=== PATIENT | female | born 1965 | race African-American/Black ===

== ENCOUNTER 2018-11-28 11:41 | Emergency (ER) | payer BC ==
[~2018-11-28] VITALS: Ht 170.2 cm; Wt 90.7 kg
== END 2018-11-28 12:58 | disposition home or self-care (01) ==
LOC: FSED 11:41
DX: R05 Cough (principal); J11.1 Influenza due to unidentified influenza virus with other respiratory manifestations; I10 Essential (primary) hypertension
CPT/HCPCS: 87400; 99282

== ENCOUNTER 2020-01-17 13:47 | Emergency (ER) | payer BC ==
[2020-01-17] MEDS ORDERED: ALLEGRA-D 12 H1 EACH PO (14:00)
[2020-01-17] MEDS ORDERED: HYDROCHLOROTHIA25 MG PO (14:00)
[2020-01-17] MEDS ORDERED: CLONIDINE HCL 0.2 MG TAB PO ONE (14:15)
== END 2020-01-17 14:30 | disposition home or self-care (01) ==
LOC: FSED 13:47
DX: R05 Cough (principal); J30.1 Allergic rhinitis due to pollen; I10 Essential (primary) hypertension
CPT/HCPCS: 99282

== ENCOUNTER → 2020-05-05 | Outpatient (CLI) | payer BC ==
[~2020-05-05] MED LIST: ALLEGRA-D 12 H1 EACH PO; HYDROCHLOROTHIA25 MG PO
== END ==
LOC: MAMMO 09:08
PROVIDERS: ATTEND Family Medicine
DX: Z12.31 Encounter for screening mammogram for malignant neoplasm of breast (principal)
CPT/HCPCS: 77067

== ENCOUNTER → 2021-03-22 | Outpatient (CLI) | payer OTHER | LOC: RAD 13:44 | PROVIDERS: ATTEND Family Medicine | DX: I10 Essential (primary) hypertension (principal) | CPT/HCPCS: 93306 ==

== ENCOUNTER → 2021-04-19 | Outpatient (CLI) | payer OTHER | LOC: MAMMO 10:39 | PROVIDERS: ATTEND Family Medicine | DX: Z12.31 Encounter for screening mammogram for malignant neoplasm of breast (principal) | CPT/HCPCS: 77067 ==

== ENCOUNTER → 2021-08-28 | Outpatient (CLI) | payer OTHER ==
[~2021-08-28] MED LIST changes: +COVID-19 VACC, MRNA(MODERNA)/PF 100 MCG/0.5 ML VIAL IM ONE
== END ==
LOC: VACCPMC 10:30
DX: Z23 Encounter for immunization (principal); Z20.822 Contact with and (suspected) exposure to COVID-19

== ENCOUNTER → 2022-04-24 | Outpatient (CLI) | payer BC ==
[~2022-04-24] MED LIST changes: -COVID-19 VACC, MRNA(MODERNA)/PF 100 MCG/0.5 ML VIAL IM ONE
== END ==
LOC: MAMMO 08:03
PROVIDERS: ATTEND Family Medicine
DX: Z12.31 Encounter for screening mammogram for malignant neoplasm of breast (principal)
CPT/HCPCS: 77067

== ENCOUNTER 2022-05-10 10:37 | Inpatient (IN) | payer BC ==
[~2022-05-10] VITALS: Ht 170.2 cm; Wt 100.2 kg
[2022-05-10] MEDS ORDERED: SODIUM CHLORIDE 0.9% 1000ML 1,000 ML IV STA ×2 (11:34→12:39)
[2022-05-10 12:10] LABS: BASOPHILS # (AUTO) 0.1 (0.0-0.1); BASOPHILS % 0.3 % (0.0-1.0); HEMATOCRIT 35.5 % (34.2-44.1); HEMOGLOBIN 12.4 g/dL (12.0-16.0); LYMPHOCYTES # (AUTO) 2.2 (1.0-3.2); LYMPHOCYTES % 11.2 % (18.0-39.1); MEAN CORPUSCULAR HEMOGLOBIN 30.1 pg (28-32); MEAN CORPUSCULAR HGB CONC 34.9 g/dL (31-35); MEAN CORPUSCULAR VOLUME 86.2 fL (81-99); MONOCYTES # (AUTO) 0.6 (0.2-0.8); MONOCYTES % 2.8 % (4.4-11.3); NEUTROPHILS # (AUTO) 16.6 (2.1-6.9); PLATELET COUNT 529 x10e3/uL (140-360); RED BLOOD COUNT 4.12 x10e6/uL (3.6-5.1); RED CELL DISTRIBUTION WIDTH 13.5 % (11.7-14.4)
[2022-05-10 12:43] LABS: ALANINE AMINOTRANSFERASE 114 IU/L (0-55); ALBUMIN 2.9 g/dL (3.5-5.0); ALBUMIN/GLOBULIN RATIO 0.5 (0.8-2.0); ALKALINE PHOSPHATASE 124 IU/L (40-150); ANION GAP 19.4 mmol/L (8-16); BLOOD UREA NITROGEN 26 mg/dL (7-26); BUN/CREATININE RATIO 19 (6-25); CALCIUM 8.9 mg/dL (8.4-10.2); CARBON DIOXIDE 24 mmol/L (22-29); CHLORIDE 89 mmol/L (98-107); CREATINE KINASE 1039 IU/L (29-168); CREATININE, SERUM 1.37 mg/dL (0.57-1.11); GLUCOSE 136 mg/dL (74-118); MAGNESIUM 2.6 MG/DL (1.3-2.1); POTASSIUM 3.4 mmol/L (3.5-5.1); SODIUM 129 mmol/L (136-145)
[2022-05-10 13:56] LABS: CLARITY,URINE SL CLOUDY (CLEAR); COLOR,URINE BROWN (YELLOW); KETONES,URINE NEGATIVE (NEGATIVE); LEUKOCYTE ESTERASE ,URINE NEGATIVE (NEGATIVE); NITRITE,URINE NEGATIVE (NEGATIVE); PROTEIN,URINE DIPSTICK >=300 (NEGATIVE); URINE UROBILINOGEN 0.2 mg/dL (0.2 - 1)
[2022-05-10 14:07] LABS: WBC,URINE (MAN) 0-5 /HPF (0-5)
[2022-05-10 14:08] LABS: BACTERIA,URINE MANY /HPF; EPITHELIAL CELLS,URINE MODERATE /LPF
[2022-05-10 14:45] LABS: FREE THYROXINE INDEX 1.9057 (1.4-3.8); THYROID STIMULATING HORMONE 1.187 uIU/mL (0.350-4.940)
[2022-05-10] MEDS: SODIUM CHLORIDE 0.9% 1000ML 1,000 ML IV SCH ×3 (15:27→23:00)
[2022-05-10] MEDS ORDERED: IOPAMIDOL 370 MG/ML 100 ML INFUS..BTL INJ ONE (15:44)
[2022-05-10] MEDS ORDERED: ONDANSETRON HCL INJ 2MG/ML 2ML 2 MG/ML VIAL IV PRN (16:00)
[2022-05-10] MEDS: FAMOTIDINE 20 MG/2 ML VIAL IV SCH (16:17)
[2022-05-10 17:49] VITALS: BP 109/81
[2022-05-10 18:09] VITALS: BP 109/81
[2022-05-10 18:17] LABS: CREATININE,URINE RANDOM 554.12 mg/dL (47-110)
[2022-05-10 18:57] LABS: INR 0.95; PARTIAL THROMBOPLASTIN TIME 18.7 seconds (23.8-35.5); PROTHROMBIN TIME 13.6 seconds (11.9-14.5)
[2022-05-10 19:02] LABS: CREATINE KINASE 830 IU/L (29-168)
[2022-05-10 20:00] VITALS: BP 124/85
[2022-05-10 20:36] VITALS: BP 124/85
[2022-05-10 21:11] LABS: AMPHETAMINES SCREEN,URINE NEGATIVE (NEGATIVE); BENZODIAZEPINES SCREEN,URINE NEGATIVE (NEGATIVE); PHENCYCLIDINE SCREEN,URINE NEGATIVE (NEGATIVE)
[2022-05-11] VITALS (7 sets, daily range): BP systolic 110–126; BP diastolic 70–86
[2022-05-11] MEDS: FAMOTIDINE 20 MG/2 ML VIAL IV SCH ×2 (04:40→15:21)
[2022-05-11 06:16] LABS: BASOPHILS % 0.3 % (0.0-1.0); EOSINOPHILS % 0.3 % (0.0-6.0); HEMATOCRIT 29.6 % (34.2-44.1); HEMOGLOBIN 10.2 g/dL (12.0-16.0); LYMPHOCYTES # (AUTO) 1.9 (1.0-3.2); LYMPHOCYTES % 14.5 % (18.0-39.1); MEAN CORPUSCULAR HEMOGLOBIN 29.8 pg (28-32); MEAN CORPUSCULAR HGB CONC 34.5 g/dL (31-35); MEAN CORPUSCULAR VOLUME 86.5 fL (81-99); MONOCYTES # (AUTO) 0.5 (0.2-0.8); MONOCYTES % 3.8 % (4.4-11.3); NEUTROPHILS # (AUTO) 10.2 (2.1-6.9); NEUTROPHILS % 79.6 % (38.7-80.0); PLATELET COUNT 551 x10e3/uL (140-360); RED BLOOD COUNT 3.42 x10e6/uL (3.6-5.1); RED CELL DISTRIBUTION WIDTH 13.8 % (11.7-14.4)
[2022-05-11 06:43] LABS: ALBUMIN 2.5 g/dL (3.5-5.0); ALBUMIN/GLOBULIN RATIO 0.5 (0.8-2.0); ANION GAP 15.9 mmol/L (8-16); CALCIUM 8.6 mg/dL (8.4-10.2); CREATININE, SERUM 0.82 mg/dL (0.57-1.11)
[2022-05-11 06:45] LABS: POTASSIUM 2.9 mmol/L (3.5-5.1)
[2022-05-11 06:56] LABS: CREATINE KINASE 616 IU/L (29-168)
[2022-05-11] MEDS ORDERED: POTASSIUM CHLORIDE 20MEQ/100ML 100 ML IV ONE (07:30)
[2022-05-11] MEDS ORDERED: POTASSIUM CHLORIDE 20 MEQ TAB CR PO STA (07:30)
[2022-05-11] MEDS: SODIUM CHLORIDE 0.9% 1000ML 1,000 ML IV SCH ×3 (07:57→20:35)
[2022-05-11] MEDS ORDERED: LEVOTHYROXINE50 MCG PO (11:27)
[2022-05-11] MEDS ORDERED: AMLODIPINE BESYL5 MG PO (11:27)
[2022-05-12] VITALS: BP 130/70
[2022-05-12 04:00] VITALS: BP 99/61
[2022-05-12] MEDS: FAMOTIDINE 20 MG/2 ML VIAL IV SCH (04:44)
[2022-05-12 07:27] VITALS: BP 124/82
[2022-05-12 07:40] LABS: CALCIUM 7.8 mg/dL (8.4-10.2); CREATININE, SERUM 0.64 mg/dL (0.57-1.11)
[2022-05-12 08:00] VITALS: BP 124/82
[2022-05-12] MEDS ORDERED: POTASSIUM CHLORIDE 20 MEQ TAB CR PO STA (08:21)
[2022-05-12] MEDS ORDERED: POTASSIUM CHLORIDE 20MEQ/100ML 100 ML IV ONE (08:30)
[2022-05-12] MEDS: SODIUM CHLORIDE 0.9% 1000ML 1,000 ML IV SCH (08:37)
[2022-05-12] MEDS ORDERED: POTASSIUM CHLO20 ME1 PO (11:19)
[2022-05-12 11:31] VITALS: BP 118/75
== END 2022-05-12 12:20 | disposition home or self-care (01) | DRG 683 ==
LOC: ER 11:13 → ERHOLD 15:46 → MED/SURG2 17:42
PROVIDERS: ADMIT Family Medicine; ATTEND Family Medicine
DX: N17.9 Acute kidney failure, unspecified (principal); E87.1 Hypo-osmolality and hyponatremia; M62.82 Rhabdomyolysis; N39.0 Urinary tract infection, site not specified; B34.9 Viral infection, unspecified; I10 Essential (primary) hypertension; E66.9 Obesity, unspecified; R79.89 Other specified abnormal findings of blood chemistry; E11.65 Type 2 diabetes mellitus with hyperglycemia; T50.2X5A Adverse effect of carbonic-anhydrase inhibitors, benzothiadiazides and other diuretics, initial encounter; E86.0 Dehydration; E87.6 Hypokalemia; R59.1 Generalized enlarged lymph nodes; E78.5 Hyperlipidemia, unspecified; Z82.49 Family history of ischemic heart disease and other diseases of the circulatory system; Z83.3 Family history of diabetes mellitus; Z88.1 Allergy status to other antibiotic agents; Z88.8 Allergy status to other drugs, medicaments and biological substances; Z68.34 Body mass index [BMI] 34.0-34.9, adult; Z20.822 Contact with and (suspected) exposure to COVID-19; E55.9 Vitamin D deficiency, unspecified
CPT/HCPCS: 36415; 70491; 71045; 74177; 80048; 80053; 80307; 81001; 82550; 82553; 82570; 83036; 83518; 83605; 83735; 83970; 84100; 84156; 84165; 84436; 84443; 84479; 84484; 84550; 85025; 85610; 85651; 85730; 86039; 86160; 86308; 86335; 86431; 87040; 87070; 87086; 94799; 99285; J0696; J3480; J7030; Q9967

== ENCOUNTER → 2024-08-11 | Outpatient (REF) | payer BC ==
[~2024-08-11] MED LIST changes: +AMLODIPINE BESYL5 MG PO; +LEVOTHYROXINE50 MCG PO; +POTASSIUM CHLO20 ME1 PO
== END ==
LOC: MAMMO 13:12
PROVIDERS: ATTEND Family Medicine
DX: Z12.31 Encounter for screening mammogram for malignant neoplasm of breast (principal)
CPT/HCPCS: 77067

== ENCOUNTER → 2025-08-16 | Outpatient (REF) | payer BC | LOC: MAMMO 08-12 08:27 | PROVIDERS: ATTEND Family Medicine | DX: N63.20 Unspecified lump in the left breast, unspecified quadrant (principal); N63.32 Unspecified lump in axillary tail of the left breast | CPT/HCPCS: 77066 ==

== ENCOUNTER → 2025-08-26 | Outpatient (REF) | payer BC | LOC: US 08:27 | PROVIDERS: ATTEND Family Medicine | DX: N63.20 Unspecified lump in the left breast, unspecified quadrant (principal); R59.0 Localized enlarged lymph nodes | CPT/HCPCS: 88305; A4648 ==